=== PATIENT | male | born 1960 | race Caucasian/White ===

== ENCOUNTER → 2017-02-18 | Outpatient (CLI) | payer OTHER ==
--- NOTE | 2017-02-18 15:57 | DIREP ---
PROCEDURE:XRAY FOOT MIN 3 VWS-LT COMPARISON:None. INDICATIONS:PES PLANUS BILATERALLY--HALLUX VARQUS FINDINGS: BONES:Normal. JOINTS:Mild hallux valgus, hallux angle is 26. SOFT TISSUES:Normal. OTHER:No additional findings. CONCLUSION:Hallux, 26. Nonweightbearing. Dictated by: Ivonne Julian MD on 02/18/2017 at 03:55 PM
--- NOTE | 2017-02-18 16:04 | DIREP ---
PROCEDURE:XRAY FOOT MIN 3 VWS-RT COMPARISON:None. INDICATIONS:PES PLANUS BILATERALLY--HALLUX VARQUS FINDINGS: BONES:Hallux angle, nonweightbearing, is 19. Inter metatarsal angle is 9.4, borderline. Os trigonum. Incipient plantar spur. JOINTS:Normal. SOFT TISSUES:Normal. OTHER:No additional findings. CONCLUSION:Nonweightbearing shows hallux angle of 19, intermetatarsal angle 9.4. Dictated by: Ivonne Julian MD on 02/18/2017 at 04:01 PM
== END | disposition home or self-care (01) ==
LOC: RAD 14:02
PROVIDERS: ATTEND Nurse Practitioner Family
DX: M20.11 Hallux valgus (acquired), right foot (principal); M20.12 Hallux valgus (acquired), left foot
CPT/HCPCS: 73630-LT; 73630-RT